=== PATIENT | male | born 1990 | race Caucasian/White ===

== ENCOUNTER 2022-01-08 18:39 | Emergency (ER) | payer MEDICAID ==
[~2022-01-08] VITALS: Ht 185.4 cm; Wt 105.0 kg
[2022-01-08 18:48] VITALS: BP 141/89
[2022-01-08] MEDS ORDERED: AMOX-494 MT (19:32)
[2022-01-08] MEDS ORDERED: CARB15DR63 EACH EAR (19:32)
== END 2022-01-08 19:39 | disposition home or self-care (01) ==
LOC: ER 18:49
DX: T16.1XXA Foreign body in right ear, initial encounter (principal); X58.XXXA Exposure to other specified factors, initial encounter; Y93.89 Activity, other specified; Y92.89 Other specified places as the place of occurrence of the external cause; Y99.8 Other external cause status; H66.91 Otitis media, unspecified, right ear
CPT/HCPCS: 69200; 99284